=== PATIENT | female | born 1975 | race Two or more races ===

== ENCOUNTER 2024-08-16 11:59 | Emergency (ER) | payer MEDICAID, SELFPAY ==
[2024-08-16 12:26] VITALS: BP 128/84; PULSE 82; RESP 16; TEMP 36.8; O2SAT 96; BMI 32.0
--- NOTE | 2024-08-16 12:27 | XR_ITS ---
Examination: PA lateral chest 2 views TECHNIQUE: Upright PA lateral chest 2 views Exam date and time: August 16, 2024 1230 hours INDICATIONS: Coughing chest pressure beginning 3 days ago. FINDINGS: Normal heart size. Lungs are clear The osseous structures are intact IMPRESSION: No active disease
--- NOTE | 2024-08-16 14:25 | EDNOTE_ITS ---
<Statement entered by Beryl Coyle MD - 08/25/24 19:22> As co-signing physician, I was present and available for consult prn. I concur with the plan and care as documented by the midlevel provider. Upper Respiratory Inf. RME/HPI General Chief Complaint: Chest Pain Stated Complaint: CHEST PRESSURE W/ TINGLY FINGERS ; FLU A X SUN Time Seen by Provider: 08/16/24 12:03 Arrival date/time: 08/16/24 11:59 49-year-old female presents emergency department today stating that she tested positive for flu on Thursday patient reports cough, congestion and chest pressure patient reports no nausea or vomiting no abdominal pain Limitations: no limitations Related Data Home Medications ?Medication ?Instructions ?Recorded ?Confirmed ergocalciferol (vitamin D2) 1,250 1,250 mcg PO QWEEK 0 11/18/23 11/19/23 mcg (50,000 unit) capsule Previous Rx's ?Medication ?Instructions ?Recorded benzonatate 100 mg capsule 100 mg PO TID #14 caps 08/06 07/30 Allergies Allergy/AdvReac Type Severity Reaction Status Date / Time ampicillin Allergy Severe DIFFICULTY Verified 08/16/24 12:01 BREATHING, HIVES Penicillins Allergy Severe DIFFICULTY Verified 08/16/24 12:01 BREATHING, HIVES codeine Allergy Intermediate Swelling Verified 08/16/24 12:01 Review of Systems Review of Systems Systems Reviewed: All systems reviewed, normal except as documented Constitutional Constitutional: Reports system reviewed and no additional complaints, except as documented, Denies fever(s) and Denies headache(s) Eyes Eyes: Reports system reviewed and no additional complaints, except as documented and Denies blurry vision ENT Ears, Nose, Mouth, and Throat: Reports system reviewed and no additional complai nts, except as documented, Denies headache(s), Denies nasal congestion and Denies nasal discharge Cardiovascular Cardiovascular: Reports system reviewed and no additional complaints, except as documented, Reports chest pain and Denies dyspnea Respiratory Respiratory: Reports system reviewed and no additional complaints, except as documented, Reports chest congestion, Reports cough and Denies dyspnea Gastrointestinal Gastrointestinal: Reports system reviewed and no additional complaints, except as documented and Denies abdominal pain Integumentary/Breasts Skin/Breast: Reports system reviewed and no additional complaints, except as documented and Denies rash Neurologic Neurologic: Reports system reviewed and no additional complaints, except as doc umented, Reports as per HPI and Denies headache(s) Past Medical History Past Medical History NEUROLOGIC: Negative Neurological Disorders or Seizures CARDIAC: Negative Cardiac Disorders, Congestive Heart Failure or Hypertension RESPIRATORY: Negative Chronic Obstructive Pulmonary Disease (COPD) or Asthma GASTROINTESTINAL: Positive Gastrointestinal Disorders (fatty liver) and Pancreatitis GENITOURINARY: Negative Genitourinary Disorders or Renal Disease REPRODUCTIVE: Positive Previous Pregnancies (4); Negative Endometriosis, Genital Herpes, Gonorrhea, Pelvic Inflammatory Disease or Syphilis MUSCULOSKELETAL: Negative Musculoskeletal Disorders ENDOCRINE: Negative Endocrine Disorders, Diabetes Mellitus Type 1 or Diabetes Mellitus Type 2 HEMATOLOGIC: Positive Blood Disorders and Anemia; Negative Sickle Cell Disease or Clotting Problems OTHER HISTORY: Positive Hospitalization (pancreatitis), Chicken Pox, Measles and Mumps; Negative Autoimmune Disease, Blood Transfusions, Anesthesia Reactions or Cancer Family History FAMILY HISTORY: Negative Family Psychiatric Problems, Family Respiratory Disorders, Family Cardiac Disorders, Family Gastrointestinal Problems, Family Cancer, Family Surgery or Family Anesthesia Reaction Surgical History SURGICAL: Positive Abdominal Surgery (TUMMY TUCK), Tubal Ligation and Section (4) Social History SMOKING STATUS: Never smoker ED Exam General Limitations: Present no limitations General appearance: Present alert and in no apparent distress Head Head exam: Present atraumatic, normocephalic and normal inspection Eye Eye exam: Present normal appearance, PERRL and EOMI; Absent conjunctival injection ENT ENT exam: Present normal exam, normal oropharynx and mucous membranes moist Neck Neck exam: Present normal inspection, full ROM and trachea midline Chest Chest inspection: Present normal inspection and symmetric chest wall rise Respiratory Respiratory exam: Present normal lung sounds bilaterally; Absent respiratory distress or wheezes Cardiovascular Cardiovascular exam: Present regular rate, normal rhythm and normal heart sounds; Absent bradycardia, tachycardia or irregular rhythm Abdominal Exam Abdominal exam: Present soft and normal bowel sounds; Absent distention, tenderness, guarding or rebound Extremities Exam Extremities exam: Present normal inspection and full ROM Back Exam Back exam: Present normal inspection and full ROM Neurological Exam Neurological exam: Present alert, oriented X3 and CN II-XII intact Psychiatric Psychiatric exam: Present normal affect and normal mood Skin Skin exam: Present warm, dry, intact and normal color Course Quality Measures none Orders Category Date Time Status EKG (ED ONLY) *Do not use* NOW Care 08/16/24 14:45 Completed EKG (ED Only) Stat Exams 08/16/24 14:45 Draft XR chest 2V Stat Exams 08/16/24 12:27 Completed Vital Signs Vital signs: Vital Signs Temperature 98.3 F 08/16/24 12:26 Pulse Rate 82 08/16/24 12:26 Respiratory Rate 16 08/16/24 12:26 Blood Pressure 128/84 08/16/24 12:26 Pulse Oximetry (%) 96 08/16/24 12:26 Oxygen Delivery Method Room Air 08/16/24 12:26 O2 saturation 96% room air within normal limits Procedures -ED EKG Interpretation #1: Date of EK08/16/24 Time of EK:08 Rate: 79 Interpretation: Interpreted by me EKG Impression: Normal sinus rhythm, No acute ST-T changes, No ectopy, No ischemic changes, Normal QRS, Normal intervals and Normal axis Upper Respiratory Infection MDM Narrative MDM Narrative:: 49-year-old female presents emergency department today stating that she tested positive for flu on Thursday patient reports cough, congestion and chest pressure patient reports no nausea or vomiting no abdominal pain On exam patient well-appearing patient does not appear ill or toxic Chest x-ray obtained no acute pneumonic infiltrates noted EKG obtained normal sinus rhythm Symptoms highly consistent with URI Patient be treated symptomatically Patient discharged home in no distress to follow-up with primary care doctor in the next 24 to 48 hours and for any worsening symptoms to return to the ER immediately Patient data External records reviewed:: [facility] previous records Clinical information provided by:: patient Social determinants that could affect healthcare access:: none Patient has the following chronic illnesses:: See history How is presenting disease/condition affected by chronic disease/condition?: uneffected by Evaluation data The following diagnostics were reviewed and interpreted by me:: lab results and radiology exam(s) Lab and/or radiology exams considered but not ordered:: Radiology and EKG obtained Interpretation Summary: Reviewed by me Medications / Prescriptions Medications or Prescriptions considered but not ordered:: Given Medication administrations:: Given Consultations Consultation(s) initiated? (list below): No Diagnosis Upper Respiratory Differential Diagnosis: upper respiratory infection, viral infection and bronchitis Most likely diagnosis given after review of the tests above:: URI Admission Indicated Admission indicated?: not indicated Admission Request Was there a request for admission?: No Disposition Plan Disposition Plan: Discharge Discharge Attestation Discharge Attestation: The patient and all family members were given an opportunity to ask questions and understood the discharge instructions. Discharge instructions specifically effects, indications for sooner follow up or return to the emergency department, and the expected course of current diagnosis. Patient condition: Stable Discharge Plan Plan Patient Disposition: HOME (Self Care) Disposition Comment: Stable Prescriptions/Referrals Prescriptions/Med Rec: New benzonatate 100 mg capsule 100 mg PO TID Qty: 14 0RF No Action ergocalciferol (vitamin D2) 1,250 mcg (50,000 unit) capsule 1,250 mcg PO QWEEK Problem List Clinical Impression: URI (upper respiratory infection), Cough Patient/Caregiver Discharge Instructions Education Materials: ED URI, Viral, No Abx (Adult) Additional Instructions: Please follow up with your primary care doctor in the next 24-48hrs for any worsening symptoms return here immediately Print Language: [place] Stand Alone Forms: Kayce Award Info., Work/School Release, Patient Portal Info Letter PA/DIRECTOR OF USER EXPERIENCE Supervising Physician PA/DIRECTOR OF USER EXPERIENCE Supervising Physician: Dr. coyle
--- NOTE | 2024-08-16 14:45 | EKG_ITS ---
[facility] Test Date: 2024-08-16 Pat Name: SANA CLEMONS Department: Room: - Gender: Female Manufacturing Sr Engineer: : 1975 Requested By: Brandon Francis (RICKI) Order Number: [id number] Reading MD: Brandon Francis (MACHINE GRAINER) Measurements Intervals Mathis Rate: 79 P: 52 SD: 123 QRS: -17 QRSD: 74 T: 38 QT: 379 QTc: 435 Interpretive Statements SINUS RHYTHM LOW QRS VOLTAGE IN PRECORDIAL LEADS [QRS DEFLECTION < 1.0 mV IN CHEST LEADS] Compared to ECG 11/14/2022 10:38:23 No significant changes /store/S0/[id number].pdf
== END 2024-08-16 16:02 | disposition home or self-care (01) ==
LOC: SERX 14:41
PROVIDERS: Emergency Provider Emergency Medicine
DX: J06.9 Acute upper respiratory infection, unspecified (principal); R07.89 Other chest pain
CPT/HCPCS: 71046; 93005; 99283

== ENCOUNTER → 2025-06-13 | Outpatient (CLI) | payer MEDICAID, SELFPAY ==
--- NOTE | 2025-06-13 09:30 | XR_ITS ---
Examination: Abdomen sonogram, complete Date and time of exam: 06/13/2025 at 9:01 a.m. CLINICAL HISTORY: Left upper quadrant and left lower quadrant abdominal pain for the last 2 years Technique: Multiple real-time grayscale transabdominal sonographic images of the abdomen have been obtained. Findings: The common bile duct measures 0.37 cm which is normal the size and the directional color flow within the portal vein and hepatic veins is normal. The patient is status post cholecystectomy. There is diffuse increased echogenicity noted throughout the entire liver indicating diffuse fatty infiltration of the liver. There is a thin-walled unilocular 1.9 cm diameter fluid-filled cyst identified, although this conceivably could be present within the caudal aspect of the liver, on most images it appears to me to lie immediately caudad but outside the liver. The size and configuration of the abdominal aorta are normal the head and body of the pancreas appear unremarkable, sonographically. The gastric antrum appears sonographically normal. Inferior vena cava appears all right. The right kidney is well seen and measures 9.21 cm in length, no calculi are noted, and there are no tumors nor any hydronephrosis. Normal color flow vascularity is seen throughout the right kidney The left kidney is 9.3 cm in length, no mass lesions, hydronephrosis or calculi are seen anywhere in the left kidney. There is normal color flow vascularity throughout. The spleen is normal in size it measures 9 cm in length. no ascites is seen anywhere. IMPRESSION: 1. Patient is status post cholecystectomy size and appearance of the biliary duct system is normal. 2. There is diffuse significant increased echogenicity throughout the liver indicative of prominent fatty infiltration. 3 there is a 1.9 cm diameter unilocular fluid-filled cyst is seen either within the caudad aspect of the right lobe of liver, or possibly just outside the liver in a subhepatic location. Its appearance is consistent with a perfectly benign cyst depending on the level of clinical concern, a contrast-enhanced CT of the upper abdomen could determine whether this is definitely within the liver or located in the subhepatic space in the upper abdomen 4. In all other respects the abdominal ultrasound exam is normal
== END | disposition home or self-care (01) ==
PROVIDERS: PCP Physician Assistant; Referring Provider Physician Assistant; Visit Provider Physician Assistant
DX: K76.0 Fatty (change of) liver, not elsewhere classified (principal); Z90.49 Acquired absence of other specified parts of digestive tract
CPT/HCPCS: 76700